=== PATIENT | male | born 1955 | race Caucasian/White ===

== ENCOUNTER 2016-04-10 15:32 | Emergency (ER) | payer OTHER ==
[~2016-04-10] VITALS: Ht 175.3 cm; Wt 101.0 kg
[~2016-04-10 15:32] MED LIST changes: -APIX1TAB3 PO; -CALC500C70 PO; -COLC0.6T54 PO; -FERR1TAB24 PO; -METO25TA56 PO; -METO5TAB25 PO; -MYCO250C26 PO; -POTA1POW PO; -PRVC/20 PO; -SIRO1TAB7 PO; -SPIR25TA PO; -TORS100T13 PO; -TRMO2580 TOP
[2016-04-10 15:35] VITALS: TEMP 37; Ht 175.3 cm; Wt 101.0 kg
[2016-04-10] MEDS ORDERED: LEVALBUTEROL 1.25MG/0.5ML NEB INH STA ×2 (15:40→20:06)
[2016-04-10] MEDS ORDERED: IPRATROPIUM BROMIDE NEB SOLN 0.02% 2.5 ML VIAL INH STA ×2 (15:40→20:06)
[2016-04-10 15:47] VITALS: O2SAT 97
[2016-04-10] MEDS ORDERED: METO25TA56 PO (15:54)
[2016-04-10] MEDS ORDERED: MYCO250C26 PO ×2 (15:54)
[2016-04-10] MEDS ORDERED: METO5TAB25 PO (15:54)
[2016-04-10] MEDS ORDERED: SIRO1TAB7 PO (15:54)
[2016-04-10] MEDS ORDERED: CALC500C70 PO (15:54)
[2016-04-10] MEDS ORDERED: PRVC/20 PO (15:54)
[2016-04-10] MEDS ORDERED: TORS100T13 PO (15:54)
[2016-04-10] MEDS ORDERED: FERR1TAB24 PO (15:54)
[2016-04-10 15:58] LABS: COMPLETE YES; EOS % 1.2 %; HEMATOCRIT 31.9 % (42-52); IG% 0.1 %; LYMPH % 8.5 %; LYMPH ABS # 0.57 K/uL (1.2-3.4); MEAN CELL VOLUME 78.8 fL (80-100); MEAN CORPUSCULAR HEMOGLOBIN 25.2 pg (25-34); MEAN PLATELET VOLUME 10.3 fL (7.4-10.4); MONO % 2.2 %; PLATELET COUNT 228 K/uL (130-400); RED BLOOD COUNT 4.05 M/uL (4.7-6.1); WHITE BLOOD COUNT 6.74 K/uL (4.8-10.8)
[2016-04-10] MEDS ORDERED: HEPARIN SOD (PORCINE) 1000 UNIT/ML 10 ML VIAL IV ONE (16:00)
--- NOTE | 2016-04-10 16:10 | EMERGENCY ROOM VISIT NOTE ---
History Report prepared by Angela: Cheri Shah Under the Supervision of: Dr. Reji Diamond M.D. First contact with patient: 15:33 Stated Complaint: BLOOD CLOT IN ARM History of Present Illness The patient is a 61 year old male who presents to the Emergency Room with complaints of a blood clot in his right arm. The patient was on vacation in the [facility] and returned today. While away, he noticed increased swelling and pain to his right arm that began 9 days ago. His current arm pain is a 9/10 in severity. He developed a cough yesterday and also notes that he is slightly more short of breath than baseline. Today, the patient saw his orthopedist and had an x-ray, ultrasound, and blood work. The ultrasound revealed a clot in his right upper arm. His leg swelling is currently at baseline. He notes that his heart rate is baseline in the 120s. The patient does not have a history of blood clots. He is not on any anticoagulants. The patient has a history of a heart transplant and is on immunosuppressors. He is not on prednisone. The patient is to be seen in [place] next week for a heart catheterization as well as to be evaluated for fluid build-up in his abdomen. Denies chest pain or other complaints. Source of History: patient Onset: 9 days ago Position: arm (right) Symptom Intensity: 9/10 Quality: other (blood clot) Timing: constant Associated Symptoms: + SOB, + cough, No chest pain Review of Systems See HPI for pertinent positives & negatives. A total of 10 systems reviewed and were otherwise negative. Past Medical & Surgical Medical Problems: (1) Diverticulitis Surgical Problems: (1) History of heart transplant Family History No pertinent family history Social History Smoking Status: Never Smoker Marital Status: Housing Status: lives with family Current/Historical Medications Scheduled Allopurinol (Allopurinol), 1 TAB PO BID Calcium/Vitamin D (Os-Lakhwinder 500 Plus D), 1 TAB PO BID Ferrous Sulfate (Feosol), 65 MG PO TID Metoprolol Tartrate (Lopressor) (Lopressor), 25 MG PO BID Multivitamins/Minerals (Mvi With Minerals), 1 TAB PO DAILY Mycophenolate Mofetil (Cellcept), 1 TAB PO QPM Mycophenolate Mofetil (Cellcept), 2 CAP PO QAM [place]-3 Fatty Acids (Fish Oil), 1 CAP PO QID Omeprazole (Prilosec), 20 MG PO DAILY Pravastatin Sod (Pravastatin Sodium), 20 MG PO HS Sirolimus (Sirolimus), 1 MG PO DAILY Torsemide (Demadex), 200 MG PO QAM Scheduled PRN Metolazone (Zaroxolyn), 5 MG PO DAILY PRN for PRN Allergies Coded Allergies: Adhesives (Verified Allergy, Unknown, SILK TAPE, 04/10/16) Codeine (Verified Allergy, Unknown, 04/10/16) Aspirin (Verified Adverse Reaction, Severe, bleeding,HX SAH, 04/10/16) history of subarachnoid hemorrhage Rivaroxaban (Verified Adverse Reaction, Unknown, HEMATOMA, 04/10/16) Physical Exam Vital Signs Date Time Temp Pulse Resp B/P Pulse Ox O2 Delivery O2 Flow Rate FiO2 04/10/16 21:41 122 22 125/81 99 Nasal Cannula 2.0 04/10/16 19:32 116 22 129/89 99 Nasal Cannula 2.0 04/10/16 17:56 116 22 117/82 100 Nasal Cannula 2.0 04/10/16 16:09 125 04/10/16 15:47 97 Room Air 04/10/16 15:35 37.0 120 24 127/84 97 Room Air Physical Exam GENERAL: Patient is in no acute distress. HEENT: No acute trauma, normocephalic atraumatic, mucous membranes moist, no nasal congestion, no scleral icterus. NECK: No stridor, no adenopathy, no meningismus, trachea is midline. LUNGS: Diminished breath sounds, dry cough noted, breath sounds are equal, wheezing bilaterally. HEART: 3/6 systolic murmur with a regular rhythm, tachycardic. ABDOMEN: Soft, nontender, bowel sounds positive, no hernias, no peritonitis. EXTREMITIES: Bilateral lower extremity edema, no cellulitis, right upper extremity edema, no cellulitis. NEUROLOGIC: Oriented x 3, no acute motor or sensory deficits, no focal weakness. SKIN: No rash, no jaundice, no diaphoresis. Medical Decision & Procedures ER Provider Diagnostic Interpretation: Ultrasound was performed earlier today outside of our facility. Results were reviewed by me. RIGHT UPPER EXTREMITY VENOUS DOPPLER CLINICAL HISTORY: Right arm swelling. COMPARISON STUDY: No previous studies for comparison. TECHNIQUE: Sonography of the venous system of the right upper extremity was performed. FINDINGS: The right internal jugular vein was patent. There was extensive thrombus within the right axillary and subclavian veins. The thrombus appeared mobile on this examination. The patient began to cough during this examination and became short of breath. IMPRESSION: Extensive deep venous thrombus within the right axillary and subclavian veins. This thrombus was likely mobile on this examination. During this study, the patient became short of breath and began to cough raising concern for pulmonary embolus. Therefore, 911 was called and the patient was transported by ambulance to the emergency department. Electronically signed by: Terell Mo M.D. 04/10/2016 3:19 PM Dictated Date/Time: 04/10/2016 3:12 PM Other radiology results and stated below per my review and radiologist interpretation: SINGLE VIEW CHEST CLINICAL HISTORY: Dyspnea. FINDINGS: An AP, portable, upright chest radiograph is compared to study dated 10/14/2014. The examination is degraded by portable technique and patient rotation. A 2-lead cardiac pacemaker partially obscures the left upper chest. The patient is status post midline sternotomy. The heart is enlarged and there is atherosclerotic calcification of the thoracic aorta. Pulmonary vascular congestion is observed. There are diffuse bilateral airspace opacities. Small pleural effusions are suspected.. No pneumothorax is seen. The skeletal structures are osteopenic. There are healed right-sided rib fractures. IMPRESSION: 1. Cardiomegaly and cardiac pacemaker with evidence of congestive failure. 2. Diffuse bilateral airspace opacities likely represent pulmonary edema. Superimposed/multifocal pneumonia would be impossible to exclude. Clinical correlation will be required. Radiographic follow-up to resolution is recommended. 3. Suspect small pleural effusions. Electronically signed by: Reji Yadav M.D. 04/10/2016 4:23 PM Dictated Date/Time: 04/10/2016 4:22 PM Laboratory Results 04/10/16 15:46 Red Blood Count 4.05, Mean Corpuscular Volume 78.8, Mean Corpuscular Hemoglobin 25.2, Mean Corpuscular Hemoglobin Concent 32.0, Mean Platelet Volume 10.3, Neutrophils (%) (Auto) 88.0, Lymphocytes (%) (Auto) 8.5, Monocytes (%) (Auto) 2.2, Eosinophils (%) (Auto) 1.2, Basophils (%) (Auto) 0.0, Neutrophils # (Auto) 5.93, Lymphocytes # (Auto) 0.57, Monocytes # (Auto) 0.15, Eosinophils # (Auto) 0.08, Basophils # (Auto) 0.00 04/10/16 15:46 Test 04/10/16 15:46 04/10/16 15:56 04/10/16 17:50 White Blood Count 6.74 K/uL (4.8-10.8) Red Blood Count 4.05 M/uL (4.7-6.1) Hemoglobin 10.2 g/dL (14.0-18.0) Hematocrit 31.9 % (42-52) Mean Corpuscular Volume 78.8 fL (80-100) Mean Corpuscular Hemoglobin 25.2 pg (25-34) Mean Corpuscular Hemoglobin Concent 32.0 g/dl (32-36) Platelet Count 228 K/uL (130-400) Mean Platelet Volume 10.3 fL (7.4-10.4) Neutrophils (%) (Auto) 88.0 % Lymphocytes (%) (Auto) 8.5 % Monocytes (%) (Auto) 2.2 % Eosinophils (%) (Auto) 1.2 % Basophils (%) (Auto) 0.0 % Neutrophils # (Auto) 5.93 K/uL (1.4-6.5) Lymphocytes # (Auto) 0.57 K/uL (1.2-3.4) Monocytes # (Auto) 0.15 K/uL (0.11-0.59) Eosinophils # (Auto) 0.08 K/uL (0-0.5) Basophils # (Auto) 0.00 K/uL (0-0.2) RDW Standard Deviation 52.3 fL (36.4-46.3) RDW Coefficient of Variation 18.2 % (11.5-14.5) Immature Granulocyte % (Auto) 0.1 % Immature Granulocyte # (Auto) 0.01 K/uL (0.00-0.02) Prothrombin Time 10.5 SECONDS (9.0-12.0) Prothromb Time International Ratio 1.0 (0.9-1.1) Activated Partial Thromboplast Time 25.2 SECONDS (21.0-31.0) Partial Thromboplastin Ratio 1.0 Anion Gap 9.0 mmol/L (3-11) Est Creatinine Clear Calc Drug Dose 61.4 ml/min Estimated GFR () 57.8 Estimated GFR (Non- 49.9 BUN/Creatinine Ratio 51.2 (10-20) Calcium Level 8.6 mg/dl (8.5-10.1) Total Bilirubin 0.6 mg/dl (0.2-1) Aspartate Amino Transf (AST/SGOT) 80 U/L (15-37) Alanine Aminotransferase (ALT/SGPT) 67 U/L (12-78) Alkaline Phosphatase 277 U/L (45-117) Total Creatine Kinase 153 U/L (39-308) Creatine Kinase MB 1.9 ng/ml (0.5-3.6) Troponin I 0.070 ng/ml (0-0.045) Total Protein 6.5 gm/dl (6.4-8.2) Albumin 2.7 gm/dl (3.4-5.0) Globulin 3.8 gm/dl (2.5-4.0) Albumin/Globulin Ratio 0.7 (0.9-2) Creatine Kinase MB Ratio (0-3.0) Influenza Type A Antigen POS for Influ A (NEG) Influenza Type B Antigen Neg for Influ B (NEG) Laboratory results reviewed by me. Medications Administered Medications (Trade) Dose Ordered Sig/Deepika Route Start Time Stop Time Status Last Admin Dose Admin Levalbuterol (Xopenex 1.25MG/ 0.5ML Neb) 1.25 mg NOW STAT INH 04/10/16 15:40 04/10/16 15:47 DC 04/10/16 15:51 1.25 MG Ipratropium [place] (Atrovent 0.02% 0.5MG/2.5ML Neb) 0.5 mg NOW STAT INH 04/10/16 15:40 04/10/16 15:47 DC 04/10/16 15:51 0.5 MG Heparin Sodium (Porcine) (Heparin Iv Bolus) 5,000 unit ONE ONCE IV 04/10/16 16:00 04/10/16 16:01 DC 04/10/16 16:36 5,000 UNIT Heparin Sodium/ Dextrose (Heparin 25,000 Unit/500ml D5W) 25,000 unit STK-MED ONCE .ROUTE 04/10/16 16:29 04/10/16 16:31 DC 2/13/17 16:37 25,000 UNIT Bumetanide (Bumex IV) 2 mg NOW ONCE IV 04/10/16 17:00 04/10/16 17:01 DC 04/10/16 18:11 2 MG Piperacillin Sod/ Tazobactam Sod (Zosyn Iv) 4.5 gm NOW STAT IV 04/10/16 17:04 04/10/16 17:05 DC 04/10/16 18:19 4.5 GM Oseltamivir Phosphate (Tamiflu Cap) 75 mg NOW STAT PO 04/10/16 18:58 04/10/16 18:59 DC 04/10/16 19:06 75 MG Levalbuterol (Xopenex 1.25MG/ 0.5ML Neb) 1.25 mg NOW STAT INH 04/10/16 20:06 04/10/16 20:07 DC 04/10/16 20:10 1.25 MG Ipratropium [place] (Atrovent 0.02% 0.5MG/2.5ML Neb) 0.5 mg NOW STAT INH 04/10/16 20:06 04/10/16 20:07 DC 04/10/16 20:09 0.5 MG ECG Indication: SOB/dyspnea Rate (beats per minute): 118 Rhythm: sinus tachycardia Findings: no acute ischemic change, no ectopy ED Course 1535: The patient was evaluated in room A12B. A complete history and physical exam was performed. 1540: Ordered Ipratropium [place] 0.5 mg INH, Levalbuterol 1.25 mg INH. 1556: Ordered Heparin Sodium/Dextrose 1 ea, Heparin Sodium 5000 unit IV. 1557: I discussed the case with Dr. Way [facility] Hospitalist. The patient will be evaluated for further management. 1700: Ordered Bumex 2 mg IV, Zosyn 4.5 gm IV. 1649: I discussed the case with Saloni - [employer]r. She will speak with the physician regarding the case. 1702: Saloni, the [place] Ext[employer] Repairer, called back and said that Dr. Mireles wants the patient to be transferred to [facility]. 1703: Upon reexamination the patient is resting comfortably. I discussed results and treatment plan with the patient. He verbalizes agreement and understanding. The patient will be evaluated for further management. 1905: I reassessed the patient and updated him that he has the flu. We are waiting to see if a bed opens in [place]. 2109: Per ED law secretary, the patient has a room assigned to him in [place]. Medical Decision Differentials include PE, DVT, bronchitis, pneumonia, CHF, coagulopathy, anemia , electrolyte imbalance, cardiac ischemia. There is no leukocytosis or concerning anemia. No significant electrolyte abnormality, kidney failure or hepatitis. There is no coagulopathy. Chest film shows what seems to be CHF, there was no focal pneumonia. EKG shows a sinus tachycardia with a rate of 118. No acute ischemia. Cardiac enzyme testing does show a very mild elevation to the cardiac troponin, this could be consistent with cardiac injury or strain. Blood cultures are pending. Influenza testing was positive for influenza A. The patient presents with findings of a right upper kidney DVT. There was concern that he may have a concomitant PE. By exam, he was wheezing, his O2 saturation was adequate, he was not febrile. He did receive IV Zosyn for antibiotic coverage. Because of the positive influenza results, he was given oral Tamiflu. He received 2 Xopenex Atrovent nebs during his ER stay. He received IV Bumex to help with diuresis. The patient was placed on IV heparin for anticoagulation purposes. I did speak with the transplant center at [place], transfer to their facility was felt warranted. The patient did spend quite a few hours in the ER before the transfer. Just before leaving, he developed a slight nosebleed. The heparin drip was put on hold. The patient has multiple issues today requiring tertiary center care. He appears to be in heart failure, he has a large and extensive right upper extremity DVT. He has influenza A. He is immunocompromised. He has recently had a lot of difficulty with increasing lower extremity edema and also with some abdominal ascites. The patient right now is doing well despite all today's findings, he is resting fairly comfortably. He has diuresed. Orders for the transfer have been written. I spoke to the patient and his family at length. I spoke with the senior case manager. Of note, the patient did take his normal daily meds while here in the emergency room. Consults Time Called: [phone] Consulting Physician: Dr. Seamus Monsalve [facility] Returned Call: [phone] I discussed the case with him. The patient will be evaluated for further management. Additional Consults: Time Called: 164 Consulted Physician: Saloni Mcintyre [employer] Die Repairer Returned Call: [phone] Additional Comments: I discussed the case with her. She will speak with the physician regarding the case. Time Called: -- Consulted Physician: Saloni Mcintyre [employer] Die Repairer Returned Call: [phone] Additional Comments: She called back and said that Dr. Mireles wants the patient to be transferred to [facility]. Impression Primary Impression: Deep venous thrombosis of right upper extremity Additional Impressions: Wheezing Shortness of breath Influenza A Critical Care I have personally spent greater than 30 minutes of critical care time in the direct management of this patient. This includes bedside care, interpretation of diagnostic studies and testing, discussion with consultants, the patient, and family members, and other required patient management activities. This 30 minutes is in excess of all separately billable procedures. Scribe Attestation The scribe's documentation has been prepared under my direction and personally reviewed by me in its entirety. I confirm that the note above accurately reflects all work, treatment, procedures, and medical decision making performed by me. Departure Information Dispostion Being Evaluated By Hospitalist Referrals Meeta Osuna DO (PCP) Problem Qualifiers
[2016-04-10 16:12] LABS: PROTHROMBIN TIME (PATIENT) 10.5 SECONDS (9.0-12.0)
[2016-04-10 16:25] LABS: BUN/CREATININE RATIO 51.2 (10-20); CALCIUM 8.6 mg/dl (8.5-10.1); CREATININE 1.5 mg/dl (0.60-1.40); POTASSIUM 3.2 mmol/L (3.5-5.1)
--- NOTE | 2016-04-10 16:25 | DIAGNOSTIC IMAGING REPORT ---
SINGLE VIEW CHEST CLINICAL HISTORY: Dyspnea. FINDINGS: An AP, portable, upright chest radiograph is compared to study dated 10/14/2014. The examination is degraded by portable technique and patient rotation. A 2-lead cardiac pacemaker partially obscures the left upper chest. The patient is status post midline sternotomy. The heart is enlarged and there is atherosclerotic calcification of the thoracic aorta. Pulmonary vascular congestion is observed. There are diffuse bilateral airspace opacities. Small pleural effusions are suspected.. No pneumothorax is seen. The skeletal structures are osteopenic. There are healed right-sided rib fractures. IMPRESSION: 1. Cardiomegaly and cardiac pacemaker with evidence of congestive failure. 2. Diffuse bilateral airspace opacities likely represent pulmonary edema. Superimposed/multifocal pneumonia would be impossible to exclude. Clinical correlation will be required. Radiographic follow-up to resolution is recommended. 3. Suspect small pleural effusions. Electronically signed by: Reji Yadav M.D. 04/10/2016 4:23 PM Dictated Date/Time: 04/10/2016 4:22 PM
[2016-04-10] MEDS ORDERED: HEPARIN 25000 UNIT/500 ML D5W ONE (16:29)
[2016-04-10] MEDS ORDERED: HEPARIN SOD 5000 UNIT/0.5 ML CARP ONE (16:32)
[2016-04-10 16:35] LABS: ALB/GLOB RATIO 0.7 (0.9-2); CKMB/CK RATIO 1.2 (0-3.0)
[2016-04-10] MEDS ORDERED: BUMETANIDE SOLN 1 MG/4 ML VIAL IV ONE (17:00)
[2016-04-10] MEDS ORDERED: PIPERACILLIN/TAZOBACTAM 4.5 GM/100ML D5W IV STA (17:04)
[2016-04-10] MEDS ORDERED: OSELTAMIVIR PHOSPHATE 75 MG CAP PO STA (18:58)
[2016-04-10 21:41] VITALS: BP 125/81; PULSE 122; O2SAT 99
[2016-05-29] MEDS ORDERED: TRMO2580 TOP (07:41)
[2016-05-29] MEDS ORDERED: COLC0.6T54 PO (07:41)
[2016-05-29] MEDS ORDERED: APIX1TAB3 PO (07:41)
[2016-05-29] MEDS ORDERED: SPIR25TA PO (07:41)
[2016-05-29] MEDS ORDERED: POTA1POW PO (07:41)
== END 2016-04-10 22:05 | disposition short-term general hospital (02) ==
LOC: EDBD 15:32 → C.EDA 15:33
DX: I82.621 Acute embolism and thrombosis of deep veins of right upper extremity (principal); R06.2 Wheezing; R06.02 Shortness of breath; J11.1 Influenza due to unidentified influenza virus with other respiratory manifestations; Z95.812 Presence of fully implantable artificial heart

== ENCOUNTER → 2016-04-10 | Outpatient (CLI) | payer OTHER ==
[~2016-04-10] MED LIST: ALLO1TAB51 PO; APIX1TAB3 PO; ATOR-22 PO; CALC500C70 PO; COLC0.6T54 PO; CYCL25CA2 PO; FERR1TAB24 PO; FURO20TA PO; IRONCAP18 PO; METO25TA56 PO; METO5TAB25 PO; MULTTAB PO; MYCO250C26 PO; OMEG120013 PO; POTA1POW PO; PRLSR20 PO; PRVC/20 PO; QUIN10TA25 PO; SIRO1TAB7 PO; SPIR25TA PO; TORS100T13 PO; TRMO2580 TOP; [UNRECOGNIZED DRUG - OTHER] PO
--- NOTE | 2016-04-10 15:20 | DIAGNOSTIC IMAGING REPORT ---
RIGHT UPPER EXTREMITY VENOUS DOPPLER CLINICAL HISTORY: Right arm swelling. COMPARISON STUDY: No previous studies for comparison. TECHNIQUE: Sonography of the venous system of the right upper extremity was performed. FINDINGS: The right internal jugular vein was patent. There was extensive thrombus within the right axillary and subclavian veins. The thrombus appeared mobile on this examination. The patient began to cough during this examination and became short of breath. IMPRESSION: Extensive deep venous thrombus within the right axillary and subclavian veins. This thrombus was likely mobile on this examination. During this study, the patient became short of breath and began to cough raising concern for pulmonary embolus. Therefore, 911 was called and the patient was transported by ambulance to the emergency department. Electronically signed by: Terell Mo M.D. 04/10/2016 3:19 PM Dictated Date/Time: 04/10/2016 3:12 PM
[2016-04-10 17:16] LABS: COMPLETE YES; EOS % 1.3 %; HEMATOCRIT 31.9 % (42-52); IG% 0.3 %; LYMPH % 6.8 %; LYMPH ABS # 0.43 K/uL (1.2-3.4); MEAN CELL VOLUME 78.8 fL (80-100); MEAN CORPUSCULAR HEMOGLOBIN 25.2 pg (25-34); MONO % 3.8 %; NEUT % 87.8 %; PLATELET COUNT 212 K/uL (130-400); RED BLOOD COUNT 4.05 M/uL (4.7-6.1); WHITE BLOOD COUNT 6.34 K/uL (4.8-10.8)
[2016-04-10 17:23] LABS: C-REACTIVE PROTEIN 6.11 mg/dl (0-0.29); URIC ACID 8.3 mg/dl (2.6-7.2)
== END | disposition home or self-care (01) ==
LOC: C.ULTRBC 13:53
DX: M75.121 Complete rotator cuff tear or rupture of right shoulder, not specified as traumatic (principal); I82.A11 Acute embolism and thrombosis of right axillary vein; I82.B11 Acute embolism and thrombosis of right subclavian vein

== ENCOUNTER → 2016-08-07 | Outpatient (CLI) | payer OTHER ==
[~2016-08-07] MED LIST changes: +APIX1TAB3 PO; -ATOR-22 PO; +CALC500C70 PO; +COLC0.6T54 PO; -CYCL25CA2 PO; +FERR1TAB24 PO; -FURO20TA PO; -IRONCAP18 PO; +METO25TA56 PO; +METO5TAB25 PO; +MYCO250C26 PO; +POTA1POW PO; +PRVC/20 PO; -QUIN10TA25 PO; +SIRO1TAB7 PO; +SPIR25TA PO; +TORS100T13 PO; +TRMO2580 TOP; -[UNRECOGNIZED DRUG - OTHER] PO
[2016-08-07 17:22] LABS: BASO % 0.9 %; BASO ABS # 0.06 K/uL (0-0.2); EOS % 2.1 %; IG% 0.5 %; LYMPH % 3.7 %; LYMPH ABS # 0.24 K/uL (1.2-3.4); MEAN CELL VOLUME 89.7 fL (80-100); MEAN CORPUSCULAR HEMOGLOBIN 27.6 pg (25-34); MEAN CORPUSCULAR HGB CONC 30.7 g/dl (32-36); MEAN PLATELET VOLUME 8.5 fL (7.4-10.4); MONO % 9.3 %; NEUT % 83.5 %; PLATELET COUNT 380 K/uL (130-400); RED BLOOD COUNT 3.01 M/uL (4.7-6.1); WHITE BLOOD COUNT 6.56 K/uL (4.8-10.8)
[2016-08-07 17:38] LABS: ALT/SGPT 18 U/L (12-78); AST/SGOT 30 U/L (15-37); BLOOD UREA NITROGEN 59 mg/dl (7-18); BUN/CREATININE RATIO 32.7 (10-20); CALCIUM 8.6 mg/dl (8.5-10.1); CARBON DIOXIDE 26 mmol/L (21-32); CHLORIDE 101 mmol/L (98-107); GLUCOSE 79 mg/dl (70-99); POTASSIUM 4.1 mmol/L (3.5-5.1); SODIUM 138 mmol/L (136-145)
[2016-08-07 17:41] LABS: ALKALINE PHOSPHATASE 241 U/L (45-117); C-REACTIVE PROTEIN 2.25 mg/dl (0-0.29)
[2016-08-07 18:03] LABS: COMPLETE YES; POLYCHROMASIA 1+
--- NOTE | 2016-08-09 14:30 | CODING QUERY NO DIAGNOSIS ---
Valid Physician Order Needed A valid physician order must be submitted in order to properly bill for the service(s) provided, including date of service(s), valid diagnosis, and physician signature. If these tests are done on a recurring basis the original physican order must be submitted in order to code and bill for the service(s) provided. Please fax us the original, signed physician order so that we may expedite billing to [phone] DOS 08/07/16 * C-REACTIVE PROTEIN * LIVER PROFILE * PARTIAL RENAL PROFILE * CBC W/ AUTO DIFF * ERYTHROCYTE SEDIMENTATION RATE Thank you Dian [facility] Information Management
== END | disposition home or self-care (01) ==
LOC: C.LABSPEC 13:22
PROVIDERS: ATTEND Orthopaedic Surgery
DX: Z01.89 Encounter for other specified special examinations (principal)

== ENCOUNTER → 2016-08-14 | Outpatient (CLI) | payer OTHER ==
[2016-08-14 12:33] LABS: BASO % 1.3 %; BASO ABS # 0.07 K/uL (0-0.2); HEMATOCRIT 26.4 % (42-52); IG% 0.9 %; LYMPH ABS # 0.38 K/uL (1.2-3.4); MEAN CELL VOLUME 87.4 fL (80-100); MEAN CORPUSCULAR HEMOGLOBIN 27.5 pg (25-34); MEAN CORPUSCULAR HGB CONC 31.4 g/dl (32-36); MEAN PLATELET VOLUME 8.6 fL (7.4-10.4); MONO % 6.8 %; PLATELET COUNT 370 K/uL (130-400); RED BLOOD COUNT 3.02 M/uL (4.7-6.1); WHITE BLOOD COUNT 5.44 K/uL (4.8-10.8)
[2016-08-14 13:20] LABS: ALT/SGPT 21 U/L (12-78); AST/SGOT 23 U/L (15-37); BLOOD UREA NITROGEN 63 mg/dl (7-18); BUN/CREATININE RATIO 28.7 (10-20); CALCIUM 8.6 mg/dl (8.5-10.1); CARBON DIOXIDE 27 mmol/L (21-32); CHLORIDE 100 mmol/L (98-107); GLUCOSE 141 mg/dl (70-99); POTASSIUM 4.1 mmol/L (3.5-5.1); SODIUM 137 mmol/L (136-145)
[2016-08-14 13:23] LABS: ALKALINE PHOSPHATASE 221 U/L (45-117); C-REACTIVE PROTEIN 1.67 mg/dl (0-0.29)
[2016-08-14 13:26] LABS: COMPLETE YES; POIKILOCYTOSIS PRESENT
--- NOTE | 2016-09-05 07:03 | CODING QUERY NO DIAGNOSIS ---
Valid Physician Order Needed A valid physician order must be submitted in order to properly bill for the service(s) provided, including date of service(s), valid diagnosis, and physician signature. If these tests are done on a recurring basis the original physican order must be submitted in order to code and bill for the service(s) provided. Please fax us the original, signed physician order so that we may expedite billing to [phone] DOS 08/14/16 * CBC W/ AUTO DIFF * ERYTHROCYTE SEDIMENTATION RATE * C-REACTIVE PROTEIN * LIVER PROFILE * PARTIAL RENAL PROFILE Thank you Dian [facility] Information Management
== END | disposition home or self-care (01) ==
LOC: C.LABSPEC 10:25
PROVIDERS: ATTEND Orthopaedic Surgery
DX: L08.9 Local infection of the skin and subcutaneous tissue, unspecified (principal)

== ENCOUNTER → 2016-08-21 | Outpatient (CLI) | payer OTHER ==
[2016-08-21 17:23] LABS: BASO % 0.8 %; BASO ABS # 0.05 K/uL (0-0.2); EOS % 2.6 %; HEMATOCRIT 28.3 % (42-52); IG% 0.5 %; LYMPH ABS # 0.59 K/uL (1.2-3.4); MEAN CELL VOLUME 86.3 fL (80-100); MEAN CORPUSCULAR HEMOGLOBIN 26.8 pg (25-34); MEAN CORPUSCULAR HGB CONC 31.1 g/dl (32-36); MEAN PLATELET VOLUME 8.7 fL (7.4-10.4); NEUT % 84.1 %; PLATELET COUNT 359 K/uL (130-400); RED BLOOD COUNT 3.28 M/uL (4.7-6.1); WHITE BLOOD COUNT 6.56 K/uL (4.8-10.8)
[2016-08-21 17:34] LABS: ALT/SGPT 15 U/L (12-78); AST/SGOT 29 U/L (15-37); BLOOD UREA NITROGEN 74 mg/dl (7-18); BUN/CREATININE RATIO 29.4 (10-20); C-REACTIVE PROTEIN 1.67 mg/dl (0-0.29); CALCIUM 9.2 mg/dl (8.5-10.1); CARBON DIOXIDE 28 mmol/L (21-32); CHLORIDE 97 mmol/L (98-107); GLUCOSE 103 mg/dl (70-99); POTASSIUM 3.4 mmol/L (3.5-5.1); SODIUM 135 mmol/L (136-145)
[2016-08-21 17:38] LABS: ALKALINE PHOSPHATASE 190 U/L (45-117)
[2016-08-21 18:06] LABS: COMPLETE YES; SCHISTOCYTES 1+; SPHEROCYTE 1+
== END | disposition home or self-care (01) ==
LOC: C.LABSPEC 08:38
PROVIDERS: ATTEND Internal Medicine Infectious Disease
DX: Z01.89 Encounter for other specified special examinations (principal)

== ENCOUNTER → 2016-08-28 | Outpatient (CLI) | payer OTHER ==
[2016-08-28 17:23] LABS: BASO % 0.8 %; BASO ABS # 0.05 K/uL (0-0.2); EOS % 1.7 %; HEMATOCRIT 27.5 % (42-52); IG% 0.2 %; LYMPH % 10.8 %; LYMPH ABS # 0.68 K/uL (1.2-3.4); MEAN CELL VOLUME 85.7 fL (80-100); MEAN CORPUSCULAR HEMOGLOBIN 26.5 pg (25-34); MEAN CORPUSCULAR HGB CONC 30.9 g/dl (32-36); MEAN PLATELET VOLUME 8.8 fL (7.4-10.4); MONO % 3.2 %; NEUT % 83.3 %; PLATELET COUNT 357 K/uL (130-400); RED BLOOD COUNT 3.21 M/uL (4.7-6.1); WHITE BLOOD COUNT 6.31 K/uL (4.8-10.8)
[2016-08-28 17:48] LABS: ALKALINE PHOSPHATASE 163 U/L (45-117); ALT/SGPT 17 U/L (12-78); AST/SGOT 27 U/L (15-37); BLOOD UREA NITROGEN 91 mg/dl (7-18); BUN/CREATININE RATIO 29.3 (10-20); CALCIUM 9.1 mg/dl (8.5-10.1); CARBON DIOXIDE 27 mmol/L (21-32); CHLORIDE 98 mmol/L (98-107); COMPLETE YES; GLUCOSE 149 mg/dl (70-99); PHOSPHORUS 4.4 mg/dl (2.5-4.9); POIKILOCYTOSIS PRESENT; POLYCHROMASIA 1+; SCHISTOCYTES OCCASIONAL; SODIUM 134 mmol/L (136-145); SPHEROCYTE OCCASIONAL
== END | disposition home or self-care (01) ==
LOC: C.LABSPEC 12:08
PROVIDERS: ATTEND Family Medicine
DX: L08.89 Other specified local infections of the skin and subcutaneous tissue (principal)

== ENCOUNTER → 2016-08-30 | Outpatient (CLI) | payer OTHER ==
--- NOTE | 2016-08-30 14:02 | DIAGNOSTIC IMAGING REPORT ---
CT SCAN OF THE RIGHT UPPER EXTREMITY WITHOUT IV CONTRAST CLINICAL HISTORY: Right arm infection. Nonhealing wound. COMPARISON STUDY: Venous ultrasound of the right upper extremity dated 04/10/2016. TECHNIQUE: CT scan of the right upper extremity is performed from the shoulder to the elbow. Images are reviewed in the axial, sagittal, and coronal planes. IV contrast was not administered for this examination as per the front clinician. Note that the examination was performed in significantly suboptimal fashion without IV contrast. Interpretation is suboptimal without plain from correlate. CT DOSE: 2131.26 mGy.cm FINDINGS: The skeletal structures are osteopenic. There is no evidence of right humeral fracture. Advanced arthritic change is identified at the glenohumeral joint. There is extensive subchondral irregularity with subchondral cyst formation and bony sclerosis and involving the glenoid and humeral head. There is a joint effusion with numerous calcified joint bodies. Productive changes seen at the acromioclavicular joint. Foci of cortical loss along the anterior superior humeral head seen on axial image #119 are likely on a degenerative basis. Nonspecific periostitis is identified along the proximal and mid humeral shaft. No cortical erosion/destruction is seen. There is diffuse subcutaneous soft tissue edema identified in the right upper extremity, with a wound suggested anteriorly above the elbow. There is a large and multiloculated appearing gas and fluid containing collection is identified along the anterior aspect of the upper extremity. This measures approximately 23 cm in maximum aggregate length, extending from the shoulder to the elbow. This collection measures up to 3 x 5 cm in maximum transaxial diameter. There are is no right axillary lymphadenopathy. Venous collaterals are identified within the right chest wall. There are healed right-sided rib fractures. A moderate and loculated appearing right pleural effusion is noted with significant atelectasis of the right lung. Midline sternotomy wires and pacemaker leads are noted. The heart is enlarged. Perihepatic ascites is partially seen in the upper abdomen. Nodularity of the hepatic surface contour suggests change of cirrhosis. IMPRESSION: 1. There is diffuse soft tissue edema seen in the right upper extremity with a large wound suggested anteriorly above the elbow. 2. There is a large and multiloculated appearing gas and fluid containing collection along the ventral aspect of the right upper extremity as detailed above which extends from the shoulder joint to the elbow. The appearance is concerning for abscess. Clinical correlation will be required. 3. Advanced arthritic change is present in the right shoulder, with associated joint effusion and numerous calcified joint bodies. Apparent foci of cortical loss within the humeral head are likely on a degenerative basis. Clinical correlation will be required. 4. Nonspecific periostitis is seen on the humeral shaft. There is no clear evidence of cortical destruction/erosion. 5. There is a large multiloculated right pleural effusion with significant atelectasis of the right lung. 6. Upper abdominal ascites is partially imaged. Nodularity of the hepatic surface contour suggests cirrhosis. Clinical correlation will be required. Electronically signed by: Reji Yadav M.D. 08/30/2016 2:00 PM Dictated Date/Time: 08/30/2016 1:48 PM
== END | disposition home or self-care (01) ==
LOC: C.CTS 12:43
PROVIDERS: ATTEND Orthopaedic Surgery
DX: B99.9 Unspecified infectious disease (principal)

== ENCOUNTER → 2016-09-03 | Outpatient (CLI) | payer OTHER ==
[2016-09-03 14:43] LABS: BASO % 0.3 %; BASO ABS # 0.02 K/uL (0-0.2); EOS % 2.4 %; HEMATOCRIT 27.2 % (42-52); IG% 0.5 %; LYMPH % 3.6 %; LYMPH ABS # 0.21 K/uL (1.2-3.4); MEAN CELL VOLUME 83.2 fL (80-100); MEAN CORPUSCULAR HEMOGLOBIN 26.3 pg (25-34); MEAN CORPUSCULAR HGB CONC 31.6 g/dl (32-36); MEAN PLATELET VOLUME 8.6 fL (7.4-10.4); MONO % 11.9 %; NEUT % 81.3 %; PLATELET COUNT 365 K/uL (130-400); RED BLOOD COUNT 3.27 M/uL (4.7-6.1)
[2016-09-03 15:01] LABS: ALT/SGPT 16 U/L (12-78); AST/SGOT 26 U/L (15-37); BLOOD UREA NITROGEN 107 mg/dl (7-18); BUN/CREATININE RATIO 30.5 (10-20); CALCIUM 9.1 mg/dl (8.5-10.1); CARBON DIOXIDE 29 mmol/L (21-32); CHLORIDE 96 mmol/L (98-107); GLUCOSE 132 mg/dl (70-99); POTASSIUM 4.5 mmol/L (3.5-5.1); SODIUM 133 mmol/L (136-145)
[2016-09-03 15:04] LABS: ALKALINE PHOSPHATASE 134 U/L (45-117)
[2016-09-03 15:15] LABS: ANISOCYTOSIS PRESENT; COMPLETE YES; POLYCHROMASIA 1+
--- NOTE | 2016-09-28 09:53 | CODING QUERY NO DIAGNOSIS ---
TREATMENT RENDERED WITHOUT A DIAGNOSIS 56 To promote full compliance with coding requirements relating to patient care, physician participation is requested in all cases of diamond expert uncertainty. Please assist us with providing a diagnosis/symptom for the test(s) below: A diagnosis/symptom was not documented on your Order. A valid diagnosis/symptom is required to bill all insurances. Please remember that we are unable to code a diagnosis of rule out, probable, possible, questionable, or suspected. DOS 09/03/16 Tests that require a diagnosis: * C-REACTIVE PROTEIN DIAGNOSIS: * LIVER PROFILE DIAGNOSIS: * PARTIAL RENAL PROFILE DIAGNOSIS: * CBC WITH AUTO DIFF DIAGNOSIS: * ESR DIAGNOSIS: Provider Signature: Date: Thank you [facility] Information Management Once completed, please kindly fax back to [phone] For questions please call [phone]
== END | disposition home or self-care (01) ==
LOC: C.LABSPEC 14:38
PROVIDERS: ATTEND Internal Medicine Infectious Disease
DX: M00.811 Arthritis due to other bacteria, right shoulder (principal)

== ENCOUNTER → 2016-09-19 | Outpatient (CLI) | payer OTHER ==
[2016-09-19 12:54] LABS: BASO % 0.6 %; BASO ABS # 0.04 K/uL (0-0.2); COMPLETE YES; EOS % 1.8 %; HEMATOCRIT 29.5 % (42-52); IG% 0.1 %; LYMPH % 8.9 %; LYMPH ABS # 0.61 K/uL (1.2-3.4); MEAN CORPUSCULAR HEMOGLOBIN 26.5 pg (25-34); MEAN CORPUSCULAR HGB CONC 31.2 g/dl (32-36); MEAN PLATELET VOLUME 9.6 fL (7.4-10.4); MONO % 3.1 %; NEUT % 85.5 %; PLATELET COUNT 307 K/uL (130-400); RED BLOOD COUNT 3.47 M/uL (4.7-6.1); WHITE BLOOD COUNT 6.84 K/uL (4.8-10.8)
[2016-09-19 13:17] LABS: BLOOD UREA NITROGEN 86 mg/dl (7-18); BUN/CREATININE RATIO 31.7 (10-20); C-REACTIVE PROTEIN 0.49 mg/dl (0-0.29); CALCIUM 9.4 mg/dl (8.5-10.1); CARBON DIOXIDE 26 mmol/L (21-32); CHLORIDE 101 mmol/L (98-107); GLUCOSE 141 mg/dl (70-99); POTASSIUM 4.2 mmol/L (3.5-5.1); SODIUM 136 mmol/L (136-145)
[2016-09-21 00:25] LABS: FK506 TACROLIMUS HIGHLY SENS 4.9 MCG/L (5-20)
== END | disposition home or self-care (01) ==
LOC: C.LABSPEC 15:45
PROVIDERS: ATTEND Internal Medicine Infectious Disease
DX: M00.9 Pyogenic arthritis, unspecified (principal)

== ENCOUNTER → 2016-10-03 | Outpatient (CLI) | payer OTHER ==
[2016-10-03 18:01] LABS: BASO % 0.6 %; BASO ABS # 0.04 K/uL (0-0.2); COMPLETE YES; EOS % 1.8 %; HEMATOCRIT 29.4 % (42-52); IG% 0.3 %; LYMPH % 7.6 %; MEAN CELL VOLUME 83.8 fL (80-100); MEAN CORPUSCULAR HEMOGLOBIN 26.8 pg (25-34); MEAN PLATELET VOLUME 9.8 fL (7.4-10.4); MONO % 7.6 %; NEUT % 82.1 %; PLATELET COUNT 254 K/uL (130-400); RED BLOOD COUNT 3.51 M/uL (4.7-6.1); WHITE BLOOD COUNT 6.61 K/uL (4.8-10.8)
[2016-10-03 18:12] LABS: BLOOD UREA NITROGEN 73 mg/dl (7-18); BUN/CREATININE RATIO 24.4 (10-20); C-REACTIVE PROTEIN 0.59 mg/dl (0-0.29); CALCIUM 9.3 mg/dl (8.5-10.1); CARBON DIOXIDE 29 mmol/L (21-32); CHLORIDE 103 mmol/L (98-107); GLUCOSE 134 mg/dl (70-99); POTASSIUM 4.9 mmol/L (3.5-5.1); SODIUM 139 mmol/L (136-145)
[2016-10-06 01:02] LABS: FK506 TACROLIMUS HIGHLY SENS 6.5 MCG/L (5-20)
== END | disposition home or self-care (01) ==
LOC: C.LABSPEC 16:26
PROVIDERS: ATTEND Internal Medicine Infectious Disease
DX: M00.9 Pyogenic arthritis, unspecified (principal)

== ENCOUNTER → 2016-10-17 | Outpatient (CLI) | payer OTHER ==
[2016-10-17 13:11] LABS: BASO % 0.4 %; BASO ABS # 0.03 K/uL (0-0.2); COMPLETE YES; EOS % 2.5 %; HEMATOCRIT 30.7 % (42-52); IG% 0.1 %; LYMPH % 7.3 %; MEAN CELL VOLUME 83.4 fL (80-100); MEAN CORPUSCULAR HEMOGLOBIN 26.4 pg (25-34); MEAN CORPUSCULAR HGB CONC 31.6 g/dl (32-36); MEAN PLATELET VOLUME 9.5 fL (7.4-10.4); MONO % 11.3 %; NEUT % 78.4 %; PLATELET COUNT 255 K/uL (130-400); RED BLOOD COUNT 3.68 M/uL (4.7-6.1); WHITE BLOOD COUNT 6.82 K/uL (4.8-10.8)
[2016-10-17 13:30] LABS: BLOOD UREA NITROGEN 76 mg/dl (7-18); BUN/CREATININE RATIO 30.4 (10-20); CALCIUM 9.4 mg/dl (8.5-10.1); CARBON DIOXIDE 25 mmol/L (21-32); CHLORIDE 103 mmol/L (98-107); GLUCOSE 85 mg/dl (70-99); POTASSIUM 4.5 mmol/L (3.5-5.1); SODIUM 137 mmol/L (136-145)
[2016-10-19 23:52] LABS: FK506 TACROLIMUS HIGHLY SENS 6.1 MCG/L (5-20)
== END ==
LOC: C.LABSPEC 09:49
PROVIDERS: ATTEND Internal Medicine Infectious Disease
DX: B99.9 Unspecified infectious disease (principal)

== ENCOUNTER → 2016-10-23 | Outpatient (CLI) | payer OTHER ==
--- NOTE | 2016-10-23 14:01 | DIAGNOSTIC IMAGING REPORT ---
RIGHT UPPER EXTREMITY WITHOUT CLINICAL HISTORY: 61 years-old Male presenting with R SHOULDER SEPTIC ARTHRITIS Right. TECHNIQUE: Multidetector CT of the right shoulder was performed without the use of intravenous contrast. IV contrast: None. A dose lowering technique was used consistent with the principles of ALARA (as low as reasonably achievable). COMPARISON: 08/30/2016. CT DOSE (mGy.cm): The estimated cumulative dose is 1524.46 mGy.cm. FINDINGS: [employer] topogram: Left-sided pacer with leads to the right atrium and right ventricular apex and median sternotomy wires again noted. Extensive loculated right pleural effusion and right pulmonary opacities also similar to prior. Cardiomegaly. Gas and fluid collection along the anterior aspect of the right upper arm has likely been incised and drained. No significant residual collection in the site. Redemonstration of varicosity of the deep veins of the right upper arm. Extensive collateral vessels noted in the anterior chest wall, which may indicate superior vena cava obstruction. Extensive degenerative change of the glenohumeral joint with deformity of the humeral head. The humeral head is flattened along the posterior lateral aspect. Extensive subchondral changes along both the humeral head and glenoid. Evidence of synovial thickening with a small right shoulder joint effusion. Previously noted heterotopic ossification or loose bodies in the joint are less apparent on the current exam, possibly suggesting disillusion. Minimal periostitis again noted along the proximal lateral aspect of the humeral shaft. In addition to the multiloculated large right pleural effusion and extensive right lung opacities, similar to prior exam, abdominal ascites again evident. Multiple right rib fractures in varying stages of healing. IMPRESSION: 1. Significant deformity of the humeral head with extensive glenohumeral joint changes. These may in part be degenerative in etiology, however, given the presence of extensive synovitis and joint fluid, these findings could represent septic arthritis as clinically queried. 2. Periosteal reaction along the proximal humeral metaphysis could be reactive or suggest osteomyelitis. MRI would better demonstrate if osteomyelitis is present. 3. Interval resolution of previously noted gas and fluid collection along the anterior soft tissues of the upper arm, possibly secondary to interval incision and drainage. 4. Large loculated right pleural effusion and extensive right lung opacities. 5. Ascites. 6. Multiple rib fractures in varying stages of healing. Electronically signed by: Yang Alonso M.D. 10/23/2016 2:00 PM Dictated Date/Time: 10/23/2016 1:49 PM
== END | disposition home or self-care (01) ==
LOC: C.CTS 13:09
PROVIDERS: ATTEND Internal Medicine Infectious Disease
DX: M00.9 Pyogenic arthritis, unspecified (principal)

== ENCOUNTER → 2017-01-04 | Outpatient (CLI) | payer OTHER ==
[2017-01-04 12:51] LABS: BASO % 0.7 %; BASO ABS # 0.04 K/uL (0-0.2); EOS % 1.4 %; HEMATOCRIT 31.5 % (42-52); IG% 0.2 %; LYMPH % 8.8 %; LYMPH ABS # 0.49 K/uL (1.2-3.4); MEAN CELL VOLUME 88.7 fL (80-100); MEAN CORPUSCULAR HEMOGLOBIN 27.6 pg (25-34); MEAN CORPUSCULAR HGB CONC 31.1 g/dl (32-36); MEAN PLATELET VOLUME 10.2 fL (7.4-10.4); MONO % 8.7 %; NEUT % 80.2 %; PLATELET COUNT 226 K/uL (130-400); RED BLOOD COUNT 3.55 M/uL (4.7-6.1); WHITE BLOOD COUNT 5.54 K/uL (4.8-10.8)
[2017-01-04 13:15] LABS: ACANTHOCYTES 1+; ANISOCYTOSIS PRESENT; COMPLETE YES; HYPOCHROMIA PRESENT
== END | disposition home or self-care (01) ==
LOC: C.LABPBG 17:17
PROVIDERS: ATTEND Internal Medicine Cardiovascular Disease
DX: Z94.1 Heart transplant status (principal); Z92.25 Personal history of immunosuppression therapy